=== PATIENT | male | born 1960 | race African-American/Black ===

== ENCOUNTER → 2016-08-07 | Outpatient (CLI) | payer BC ==
[2014-02-09 08:45] VITALS: BP 128/70
[~2016-08-07] MED LIST: ALBU18HF IH; CELE200C PO; HYDR12.58 PO; MELO15TA6 PO
--- NOTE | 2016-08-07 08:54 | RAD ---
Indication chest congestion. Cough. History of asthma. PA and lateral views of the chest were obtained. No prior imaging of the chest is available. The heart and pulmonary vessels appear normal. The lungs are clear. There is no pleural fluid or pneumothorax. The bony structures appear grossly intact. IMPRESSION: No acute or focal process is seen in the chest
== END | disposition home or self-care (01) ==
LOC: DXRADRC 08:34
PROVIDERS: ATTEND Family Medicine
DX: R05 Cough (principal); R09.89 Other specified symptoms and signs involving the circulatory and respiratory systems; Z87.09 Personal history of other diseases of the respiratory system
CPT/HCPCS: 71020

== ENCOUNTER → 2019-12-18 | Outpatient (CLI) | payer BC ==
[2014-02-09 08:45] VITALS: BP 128/70
[~2019-12-18] MED LIST changes: -ALBU18HF IH; +ALBU2.5V8 IH
--- NOTE | 2019-12-18 09:01 | RAD ---
AP view of the pelvis and two-view study of the right hip Clinical indications: Right groin and right hip pain. FINDINGS: No acute fracture or dislocation or lytic process is seen. There is moderate joint space narrowing and subchondral cyst formation and subchondral sclerosis and mild spurring of the right hip joint. A left hip arthroplasty is evident. IMPRESSION: Moderate primary degenerative osteoarthritis of the right hip joint. Electronically signed by: Himanshu Ross MD (12/18/2019 8:58 AM) [id number]
== END | disposition home or self-care (01) ==
LOC: DXRAD 07:57
PROVIDERS: ATTEND Physician Assistant Medical
DX: M16.11 Unilateral primary osteoarthritis, right hip (principal); M77.8 Other enthesopathies, not elsewhere classified
CPT/HCPCS: 73502